=== PATIENT | female | born 1970 ===

== ENCOUNTER → 2023-07-15 | Outpatient (CLI) | payer OTHER ==
[~2023-07-15] MED LIST: CITA20 PO; IBUP400 PO; IBUP800; LORA2 PO; PROACE100 PO; RXLORA1 PO
[2023-07-16 09:13] LABS: Stool Occult Bld Immuno 1 Negative (NEGATIVE)
== END | disposition home or self-care (01) ==
LOC: LAB 10:00 → LAB SHORT 10:00
PROVIDERS: Physician Assistant
DX: Z12.11 Encounter for screening for malignant neoplasm of colon (principal); Z12.12 Encounter for screening for malignant neoplasm of rectum
CPT/HCPCS: G0328

== ENCOUNTER → 2023-07-15 | Outpatient (CLI) | payer OTHER ==
[2023-07-15 13:16] LABS: BASOPHILS ABSOLUTE AUTO 0.04 K/mm3 (0.00-0.23); BASOPHILS PERCENT AUTO 1 % (0-2); EOSINOPHILS ABSOLUTE AUTO 0.17 K/mm3 (0.00-0.68); EOSINOPHILS PERCENT AUTO 2 % (0-6); Hematocrit 43.7 % (33.0-51.0); Hemoglobin 14.9 g/dL (11.5-16.0); IMMATURE GRAN ABSOLUTE AUTO 0.01 K/mm3 (0.00-0.10); IMMATURE GRAN PERCENT AUTO 0 % (0-1); LYMPHOCYTES ABSOLUTE AUTO 3.51 K/mm3 (0.84-5.20); LYMPHOCYTES PERCENT AUTO 47 % (21-46); MONOCYTES ABSOLUTE AUTO 0.53 K/mm3 (0.16-1.47); MONOCYTES PERCENT AUTO 7 % (4-13); Mean Corpuscular HGB 31.8 pg (26.0-34.0); Mean Corpuscular HGB Conc 34.1 g/dL (31.5-36.5); Mean Corpuscular Volume 93 fL (80-100); Mean Platelet Volume 10.2 fL (9.1-12.4); NEUTROPHILS ABSOLUTE AUTO 3.28 K/mm3 (1.96-9.15); NEUTROPHILS PERCENT AUTO 44 % (41-73); Platelet Count 244 K/mm3 (150-400); RDW Coefficient Variation 12.4 % (11.7-14.2); RDW Standard Deviation 42.8 fL (35.1-46.3); Red Blood Cell Count 4.69 M/mm3 (3.80-5.20); White Blood Cell Count 7.54 K/mm3 (4.00-11.30)
[2023-07-15 14:31] LABS: CHOL/HDL RATIO 3.8; Cholesterol 201 mg/dL (50-200); HDL Cholesterol 53 mg/dL (>39); LDL/HDL RATIO 1.9; Low Density Lipoprotein Chol 101 mg/dL (0-110); Triglycerides 236 mg/dL (30-160); Very Low Density Lipoprot Chol 47 mg/dL (6-32)
== END | disposition home or self-care (01) ==
LOC: LAB 12:05 → LAB SHORT 12:05
PROVIDERS: Physician Assistant
DX: E78.00 Pure hypercholesterolemia, unspecified (principal); E53.8 Deficiency of other specified B group vitamins; E55.9 Vitamin D deficiency, unspecified; I10 Essential (primary) hypertension
CPT/HCPCS: 80061; 82306; 82607; 82746; 85025

== ENCOUNTER 2024-01-07 18:30 | Inpatient (IN) | payer OTHER ==
[~2024-01-07] VITALS: Ht 167.6 cm; Wt 60.4 kg
[~2024-01-07 18:30] MED LIST changes: +IBUP200 PO; -IBUP800
[2024-01-07 20:49] LABS: Hematocrit 37.8 % (33.0-51.0); Mean Corpuscular HGB 31.7 pg (26.0-34.0); Mean Corpuscular HGB Conc 34.4 g/dL (31.5-36.5); Mean Corpuscular Volume 92 fL (80-100); Mean Platelet Volume 9.4 fL (9.1-12.4); Platelet Count 332 K/mm3 (150-400); RDW Coefficient Variation 12.5 % (11.7-14.2); RDW Standard Deviation 42.3 fL (35.1-46.3); White Blood Cell Count 11.53 K/mm3 (4.00-11.30)
[2024-01-07 21:11] LABS: Albumin, Blood 3.3 g/dL (3.4-5.0); Albumin/Globulin Ratio 0.8 (0.8-1.8); Bilirubin, Total 0.2 mg/dL (0.1-1.0); Bun/Creatinine Ratio 24.1 (12.0-20.0); C-REACTIVE PROTEIN, EXT RANGE 0.897 mg/dL (0.000-0.300); Calcium, Blood 9.1 mg/dL (8.5-10.1); Creatinine, Blood 0.58 mg/dL (0.40-1.00); Globulin, Blood 4.4 g/dL (2.2-4.0); Potassium, Blood 3.4 mmol/L (3.5-5.5); Total Protein, Blood 7.7 g/dL (6.4-8.2)
[2024-01-07 21:23] LABS: BASOPHILS PERCENT MAN 0 % (0-2); EOSINOPHILS ABSOLUTE MAN 0.23 K/mm3 (0.00-0.68); EOSINOPHILS PERCENT MAN 2 % (0-6); LYMPHOCYTES ABSOLUTE MAN 4.15 K/mm3 (0.84-5.20); LYMPHOCYTES PERCENT MAN 36 % (21-46); MONOCYTES ABSOLUTE MAN 1.15 K/mm3 (0.16-1.47); MONOCYTES PERCENT MAN 10 % (4-13); NEUTROPHILS ABSOLUTE MAN 5.99 K/mm3 (1.96-9.15); SEG NEUTROPHILS PERCENT MAN 52 % (41-73); TOTAL CELLS COUNTED 100
[2024-01-07] MEDS ORDERED: Vancomycin HCL 1,000 MG in NS 110 ML IV ONE (23:50)
[2024-01-07] MEDS ORDERED: Piperacillin/Tazobactam Sod 4.5 GM in NS 100 ML IV ONE (23:55)
[2024-01-08] VITALS (15 sets, daily range): BP systolic 122–170; BP diastolic 75–100
[2024-01-08] MEDS ORDERED: OxyCODONE 5 mg/Acetamin 325 mg TABLET PO ONE (00:50)
[2024-01-08] MEDS ORDERED: HydrALAZINE HCl 20 MG / ML 1ML Vial IV PRN (04:30)
[2024-01-08] MEDS ORDERED: HYDROcodone 5-APAP 325 TAB PO PRN (04:30)
[2024-01-08] MEDS ORDERED: Ondansetron HCl 2 MG / ML 2ML Vial IV PRN ×2 (04:35→13:50)
[2024-01-08] MEDS ORDERED: Lactated Ringer's 1,000 ML IV SCH ×2 (04:35→11:50)
[2024-01-08] MEDS ORDERED: FLU VACC QS2023-24(6MOS UP)/PF 60 MCG/0.5 ML SYRINGE IM SCH (04:35)
[2024-01-08] MEDS ORDERED: Potassium Chloride 40 MEQ in NS 250 ML IV STA (05:45)
[2024-01-08 06:00] LABS: BASOPHILS ABSOLUTE AUTO 0.04 K/mm3 (0.00-0.23); BASOPHILS PERCENT AUTO 0 % (0-2); EOSINOPHILS ABSOLUTE AUTO 0.17 K/mm3 (0.00-0.68); EOSINOPHILS PERCENT AUTO 2 % (0-6); Hemoglobin 12.9 g/dL (11.5-16.0); IMMATURE GRAN ABSOLUTE AUTO 0.04 K/mm3 (0.00-0.10); IMMATURE GRAN PERCENT AUTO 0 % (0-1); LYMPHOCYTES ABSOLUTE AUTO 3.99 K/mm3 (0.84-5.20); LYMPHOCYTES PERCENT AUTO 43 % (21-46); MONOCYTES ABSOLUTE AUTO 0.74 K/mm3 (0.16-1.47); MONOCYTES PERCENT AUTO 8 % (4-13); Mean Corpuscular HGB 31.5 pg (26.0-34.0); Mean Corpuscular HGB Conc 33.9 g/dL (31.5-36.5); Mean Corpuscular Volume 93 fL (80-100); Mean Platelet Volume 9.4 fL (9.1-12.4); NEUTROPHILS ABSOLUTE AUTO 4.31 K/mm3 (1.96-9.15); NEUTROPHILS PERCENT AUTO 47 % (41-73); Platelet Count 315 K/mm3 (150-400); RDW Coefficient Variation 12.6 % (11.7-14.2); RDW Standard Deviation 42.9 fL (35.1-46.3); White Blood Cell Count 9.29 K/mm3 (4.00-11.30)
[2024-01-08] MEDS ORDERED: Piperacillin/Tazobactam Sod 3.375 GM in NS 50 ML IV SCH (06:00)
[2024-01-08 06:17] LABS: International Normalized Ratio 0.93; Prothrombin Time Results 9.8 Sec (9.7-11.5)
[2024-01-08 07:11] LABS: Albumin, Blood 3.1 g/dL (3.4-5.0); Albumin/Globulin Ratio 0.7 (0.8-1.8); Bilirubin, Total 0.3 mg/dL (0.1-1.0); Bun/Creatinine Ratio 24.1 (12.0-20.0); Calcium, Blood 8.6 mg/dL (8.5-10.1); Creatinine, Blood 0.46 mg/dL (0.40-1.00); Globulin, Blood 4.2 g/dL (2.2-4.0); Magnesium, Blood 2.3 mg/dL (1.6-2.4); Potassium, Blood 3.8 mmol/L (3.5-5.5); Total Protein, Blood 7.3 g/dL (6.4-8.2)
--- NOTE | 2024-01-08 08:40 | NUR ---
SHIFT SUMMARY PT ARRIVED TO ROOM 339 FROM THE ER AROUND 0220 VIA WHEELCHAIR. PT SELF TRANSFERED TO HOSPITAL BED. VSS ON RA, BP ELEVATED. PT ARRIVES TO FLOOR DURING MEDITECH DOWNTIME. C/O 9/10 PAIN IN HER RIGHT INDEX FINGER, MEDICATED PER ORDER AND ELEVATED ON PILLOW. PT REMAINS NPO FOR POSSIBLE INFECTION INTERVENTION. PT STATES SHE CONSUMES AROUND 4 ALCOHOLIC BEVERAGES DAILY. UP INDEPENDENTLY IN ROOM/BR. REGIONAL MAINTENANCE MANAGER AND CIGARETTES LOCKED IN PT DRAWER OUTSIDE ROOM. BED IN LOWEST POSITION, CALL LIGHT WITHIN REACH.
[2024-01-08] MEDS ORDERED: Lactobacil 2-S.Thermo-Bifido 1 1 Cap PO SCH (09:00)
[2024-01-08] MEDS ORDERED: Vancomycin HCL 1,250 MG in NS 250 ML IV SCH (12:00)
[2024-01-08] MEDS ORDERED: propofoL 20 ML IV ONE (12:35)
[2024-01-08] MEDS ORDERED: Lidocaine HCl 2% 20 ML MDV ONE (12:35)
[2024-01-08] MEDS ORDERED: FentaNYL Citrate 50 MCG/ML 2 ML Injection ONE (12:36)
--- NOTE | 2024-01-08 12:44 | NUR ---
PT RECENTLY TO [facility] BY [facility]. History, Chart, Medications and Allergies reviewed before start of procedure.Lungs clear T/O to Auscultation. Patient confirms NPO status and agrees with scheduled surgery. Pre-Op teaching done. Pt verbalizes understanding.
[2024-01-08] MEDS ORDERED: Midazolam HCl 1MG / ML 2ML Vial IV ONE (12:50)
[2024-01-08] MEDS ORDERED: Ondansetron HCl 2 MG / ML 2ML Vial ONE (13:05)
[2024-01-08] MEDS ORDERED: Dexamethasone Sod Phos 10 MG/ML 1ML VIAL ONE (13:05)
[2024-01-08] MEDS ORDERED: Bupivacaine HCl 2.5 MG/ML 10ML P/F Injection ONE (13:15)
[2024-01-08] MEDS ORDERED: FentaNYL Citrate 50 MCG/ML 2 ML Injection IV PRN ×3 (13:50)
[2024-01-08] MEDS ORDERED: Flumazenil 0.1 MG / ML 5ML Vial ONE (14:34)
[2024-01-08] MEDS ORDERED: CeFAZolin Sodium 2,000 MG in NS 50 ML IV SCH (17:00)
--- NOTE | 2024-01-08 17:55 | NUR ---
SHIFT SUMMARY PATIENT ALERT AND INTERACTIVE. PATIENT ABLE TO AMBULATE WITH STAND BY ASSIST. PATIENT STATES SHE HAS PAIN IN R INDEX FINGER. PATIENT STATES THAT FINGER IS MUCH IMPROVED. PATIENT STATES THAT IT WAS PURPLE WHEN SHE ARRIVED. AFTER ANTIBIOTICS FINGER NOW PINK/RED,WARM, WITH GOOD CAP REFILL. PATIENT TAKEN TO OR AT 1210 FOR I&D. PATIENT RETURNED ABOUT 4PM. PATIENT HAD TORN TENDON REQUIRING REATTACHMENT. PATIENT ALERT AND REQUESTING ICE CHIPS AND FOOD. PATIENT TOLERATING ICE CHIPS AND LIQUIDS WELL. PATIENT ADVANCED TO REGULAR DIET. PLAN TO POSSIBLY DISCHARGE TOMORROW PER SURGICAL. DR JAVED NOTIFIED OF PATIENT UPDATE.
[2024-01-09 03:40] VITALS: BP 118/70
--- NOTE | 2024-01-09 05:37 | NUR ---
SHIFT SUMMARY: PT IS ADMITTED FOR RIGHT INDEX FINGER INJURY AND IS A FULL CODE. IS ALERT AND ABLE TO MAKE NEEDS KNOWN. ADLs HAVE BEEN INDEPENDENT. PAIN HAS BEEN MANAGED BY PRN PAIN MANAGEMENT X2. IV TO LEFT FOREARM AND AC ARE PATENT WITH DRESSINGS THAT ARE CDI. IV TO THE AC HAS LR RUNNING AT 100ML/H. DRESSING TO RIGHT HAND/ INDEX FINGER IS CDI.
[2024-01-09 06:12] LABS: BASOPHILS ABSOLUTE AUTO 0.02 K/mm3 (0.00-0.23); BASOPHILS PERCENT AUTO 0 % (0-2); EOSINOPHILS PERCENT AUTO 0 % (0-6); Hematocrit 35.1 % (33.0-51.0); Hemoglobin 11.7 g/dL (11.5-16.0); IMMATURE GRAN ABSOLUTE AUTO 0.04 K/mm3 (0.00-0.10); IMMATURE GRAN PERCENT AUTO 0 % (0-1); LYMPHOCYTES ABSOLUTE AUTO 2.12 K/mm3 (0.84-5.20); LYMPHOCYTES PERCENT AUTO 21 % (21-46); MONOCYTES PERCENT AUTO 7 % (4-13); Mean Corpuscular HGB 31.5 pg (26.0-34.0); Mean Corpuscular HGB Conc 33.3 g/dL (31.5-36.5); Mean Corpuscular Volume 94 fL (80-100); Mean Platelet Volume 9.6 fL (9.1-12.4); NEUTROPHILS ABSOLUTE AUTO 7.25 K/mm3 (1.96-9.15); NEUTROPHILS PERCENT AUTO 72 % (41-73); Platelet Count 302 K/mm3 (150-400); RDW Coefficient Variation 12.6 % (11.7-14.2); RDW Standard Deviation 43.8 fL (35.1-46.3); Red Blood Cell Count 3.72 M/mm3 (3.80-5.20); White Blood Cell Count 10.13 K/mm3 (4.00-11.30)
[2024-01-09 06:16] LABS: Albumin, Blood 2.8 g/dL (3.4-5.0); Albumin/Globulin Ratio 0.7 (0.8-1.8); Bilirubin, Total 0.2 mg/dL (0.1-1.0); Bun/Creatinine Ratio 19.6 (12.0-20.0); C-REACTIVE PROTEIN, EXT RANGE 1.26 mg/dL (0.000-0.300); Calcium, Blood 8.4 mg/dL (8.5-10.1); Creatinine, Blood 0.56 mg/dL (0.40-1.00); Total Protein, Blood 6.8 g/dL (6.4-8.2)
[2024-01-09 07:21] VITALS: BP 130/68
[2024-01-09 11:29] LABS: Vancomycin, Trough 12.7 ug/mL (5.0-10.0)
[2024-01-09] MEDS ORDERED: Norco 5-325 Ta1 EACH PO (14:55)
--- NOTE | 2024-01-09 16:39 | NUR ---
DISCHARGE SUMMARY PATIENT WITH SOME NUMBNESS, SWELLING AND TINGLING TO RIGHT FINGERTIPS, RELIEVED WITH LOOSENING OF MARY KAY WRAP. SURGEON NOTIFIED AT BEDSIDE. SURGEON CAME BACK LATER IN DAY AND PLACED CAST AT BEDSIDE IN THIS OPERATIONS OFFICER TRUST DEPARTMENT PRESENCE. PATIENT MEDICATED FOR PAIN PER EMAR. PATIENT MEDICATION AND EDUCATION PRINTOUTS GIVEN TO PATIENT, SIGNATURE OBTAINED AT 1605. 2 IV'S REMOVED FROM LFA AND LAC BY ROMÁN JOHANSEN. ALL QUESTIONS ANSWERED. PATIENT LEFT UNIT AT 1638 CHOOSING TO AMBULATE TO MAIN ENTRANCE TO BE PICKED UP BY DAUGHTER VIA PRIVATE VEHICLE. PATIENT REFUSED OFFER OF TRANSPORT CHAIR.
== END 2024-01-09 16:28 | disposition home or self-care (01) | DRG 513 ==
LOC: ER 18:30 → MEDS 01-08 00:34 → ER 01-08 02:10 → MEDS 01-08 02:24
PROVIDERS: Internal Medicine; Orthopaedic Surgery Sports Medicine; Student in an Organized Health Care Education/Training Program; ADMIT Student in an Organized Health Care Education/Training Program
PROC: 0RNW0ZZ Release Right Finger Phalangeal Joint, Open Approach (ICD-10-PCS; 2024-01-08)
PROC: 0LQ70ZZ Repair Right Hand Tendon, Open Approach (ICD-10-PCS; 2024-01-08)
PROC: 0LB70ZZ Excision of Right Hand Tendon, Open Approach (ICD-10-PCS; principal; 2024-01-08 12:30)
DX: M65.841 Other synovitis and tenosynovitis, right hand (principal); L02.511 Cutaneous abscess of right hand; E87.6 Hypokalemia; G89.29 Other chronic pain; I10 Essential (primary) hypertension; F17.210 Nicotine dependence, cigarettes, uncomplicated; Z88.5 Allergy status to narcotic agent; Z79.899 Other long term (current) drug therapy; M79.644 Pain in right finger(s); M15.1 Heberden's nodes (with arthropathy)
CPT/HCPCS: 36415; 73201; 80053; 80202; 83735; 85025; 85610; 85651; 86140; 88305; 94760; 99284-25; A9270; J0690; J1100; J2250; J2405; J2543; J2704; J3010; J3370; J3480; J7050; J7120; Q9967

== ENCOUNTER → 2024-03-18 | Outpatient (CLI) | payer OTHER ==
[~2024-03-18] MED LIST changes: +Norco 5-325 Ta1 EACH PO
[2024-03-18 14:36] LABS: Campylobacter Sp Not Detected (NOT DETECT)
[2024-03-18 14:37] LABS: Adenovirus F 40/41 Not Detected (NOT DETECT); Astrovirus Not Detected (NOT DETECT); Cryptosporidium Not Detected (NOT DETECT); Cyclospora Cayetanensis Not Detected (NOT DETECT); E. Coli O157 Not Detected (NOT DETECT); Entamoeba Histolytica Not Detected (NOT DETECT); Enteroaggregative E. coli-EAEC Not Detected (NOT DETECT); Enteropathogenic E. coli-EPEC Not Detected (NOT DETECT); Enterotoxigenic E. coli-ETEC Not Detected (NOT DETECT); Giardia Lamblia Not Detected (NOT DETECT); Norovirus GI/GII Not Detected (NOT DETECT); Plesiomonas Shigelloides Not Detected (NOT DETECT); Rotavirus A Not Detected (NOT DETECT); Salmonella Sp Not Detected (NOT DETECT); Sapovirus Not Detected (NOT DETECT); Shiga Toxin-prod E. coli-STEC Not Detected (NOT DETECT); Shigella/Enteroin E. coli-EIEC Not Detected (NOT DETECT); Vibrio Cholerae Not Detected (NOT DETECT); Vibrio Sp Not Detected (NOT DETECT); Yersinia Enterocolitica Not Detected (NOT DETECT)
== END ==
LOC: LAB 08:40 → LAB SHORT 08:40
PROVIDERS: Physician Assistant
DX: R19.7 Diarrhea, unspecified (principal)
CPT/HCPCS: 87507

== ENCOUNTER 2025-08-11 06:46 | Day surgery (SDC) | payer OTHER ==
[~2025-08-11] VITALS: Ht 160 cm; Wt 56.7 kg
[~2025-08-11 06:46] MED LIST changes: +AMLO5 PO; +ATOR40TA PO; +CITALOPRAM HBR10 MG PO; +METOPROLOL SUCC25 MG PO; +OMEP20ER; +Vitamin D1000 UNI1 PO
[2025-08-11] MEDS ORDERED: Atarax10 MG (07:19)
[2025-08-11] MEDS ORDERED: FAMO10 PO (07:19)
[2025-08-11 11:54] VITALS: BP 131/87
== END 2025-08-11 09:46 | disposition home or self-care (01) ==
LOC: ORSCSDS 06:46
PROVIDERS: Internal Medicine Gastroenterology
PROC: 0DJD8ZZ Inspection of Lower Intestinal Tract, Via Natural or Artificial Opening Endoscopic (ICD-10-PCS; principal; 2025-08-11 08:45)
PROC: 0DB58ZX Excision of Esophagus, Via Natural or Artificial Opening Endoscopic, Diagnostic (ICD-10-PCS; principal; 2025-08-11 08:45)
PROC: 0DB78ZX Excision of Stomach, Pylorus, Via Natural or Artificial Opening Endoscopic, Diagnostic (ICD-10-PCS; principal; 2025-08-11 08:45)
DX: K21.9 Gastro-esophageal reflux disease without esophagitis (principal); Z12.11 Encounter for screening for malignant neoplasm of colon; K29.70 Gastritis, unspecified, without bleeding; E78.5 Hyperlipidemia, unspecified; F32.A Depression, unspecified; F17.210 Nicotine dependence, cigarettes, uncomplicated; Z79.899 Other long term (current) drug therapy
CPT/HCPCS: 88305; 88341; 88342; J2704; J7120